=== PATIENT | female | born 1980 | race African-American/Black ===

== ENCOUNTER 2018-10-17 20:28 | Emergency (ER) | payer OTHER ==
[~2018-10-17] VITALS: Ht 157.5 cm; Wt 72.6 kg
[2018-10-18] MEDS ORDERED: NORFLEX100 MG PO (01:08)
[2018-10-18] MEDS ORDERED: ULTRAM 50MG TAB50 MG PO (01:08)
[2018-10-18] MEDS ORDERED: IBUPROFEN 600600 M1 PO (01:08)
[2018-10-18 01:25] VITALS: BP 129/87
== END 2018-10-18 01:25 | disposition home or self-care (01) ==
LOC: ER 20:28
DX: S16.1XXA Strain of muscle, fascia and tendon at neck level, initial encounter (principal); S29.012A Strain of muscle and tendon of back wall of thorax, initial encounter; F17.210 Nicotine dependence, cigarettes, uncomplicated; Z88.2 Allergy status to sulfonamides; V49.49XA Driver injured in collision with other motor vehicles in traffic accident, initial encounter; Y93.89 Activity, other specified; Y92.89 Other specified places as the place of occurrence of the external cause; Y99.8 Other external cause status